=== PATIENT | female | born 1955 | race Caucasian/White ===

== ENCOUNTER 2017-12-31 17:37 | Inpatient (IN) ==
[2017-12-31] MEDS ORDERED: Ondansetron ODT 4 MG TAB.RAPDIS SL ONE (18:07)
[2017-12-31] MEDS ORDERED: 0.9 % Sodium Chloride 500 ML IVC ONE (18:08)
--- NOTE | 2017-12-31 18:14 | Emergency Department Note ---
Disposition Clinical Impression: Diverticulitis Abdominal pain Qualifiers: Abdominal location: right lower quadrant Qualified Code(s): R10.31 - Right lower quadrant pain Disposition: Admitted As Inpatient Condition: Fair Referrals: Timmy Villarreal MD [Primary Care Provider] - Forms: ED Satisfaction Letter, Work/School Release Abdominal Pain HPI - General Chief Complaint: ED Abdominal Pain Stated Complaint: Fever / Abd Pain Time Seen by Provider: 12/31/17 17:52 Source: patient Nursing Notes Reviewed: Yes Vital Signs Reviewed: Yes - History of Present Illness HPI Narrative: 62-year-old female presents emergency department with 3 day history of worsening right lower quadrant abdominal pain. Some nausea without vomiting. No diarrhea. She occasionally has bloody stools from internal hemorrhoids which she says is bright red intermittent and not uncommon for her. She said this is not a new finding. Patient does have her appendix and she is concerned that she may have appendicitis she also has diverticulosis and Concerta may have moved to diverticulitis would like to be evaluated for both of those. She denies chest pain or shortness of breath. Patient does note that she had a fever which she checked several times and it was elevated. She is not taking anything for her fever. No other complaints at this time. 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: constant Location: RLQ Pain Severity: severe Pain Scale: 8 Quality: sharp, dull Radiation: none Migration to: no migration Improves with: nothing Worsens with: nothing Associated symptoms: Reports: nausea, fever Treatments prior to arrival: none - Related Data Home Medications Medication Instructions Recorded Confirmed Clopidogrel [Plavix] 75 mg PO DAILY 11/04/15 12/31/17 Metformin HCl [Glucophage] 1,000 mg PO BID 11/04/15 12/31/17 Allopurinol [Zyloprim 100 MG] 100 mg PO DAILY 07/23/17 12/31/17 LORazepam [Ativan] 0.5 mg PO DAILY PRN 07/23/17 12/31/17 Meclizine HCl [Verticalm] 25 mg PO DAILY PRN 07/23/17 12/31/17 Metoprolol Succinate [Metoprolol 100 mg PO DAILY 07/23/17 12/31/17 Succinate] Rosuvastatin Calcium [Rosuvastatin 5 mg PO Q48H 07/23/17 12/31/17 Calcium] Albuterol Sulfate [Ventolin Hfa] 18 gm IH Q4H PRN 12/31/17 12/31/17 Beclomethasone Dipropionate [Qvar 10.6 gm IH DAILY 12/31/17 12/31/17 Redihaler] Fluticasone Propionate Nasal 25 gm IN DAILY 12/31/17 12/31/17 [Flonase] Furosemide [Lasix] 20 mg PO Q48H 12/31/17 12/31/17 Allergies Allergy/AdvReac Type Severity Reaction Status Date / Time aspirin Allergy Hives Verified 07/23/17 13:03 iodine Allergy Hives Verified 07/23/17 13:03 Oxycodone AdvReac Headache Verified 07/23/17 13:03 Smxmssz-Iua-Ssl Reductase AdvReac Muscle Pain Verified 07/23/17 13:03 Inhibitor [Statins] All systems ED: reviewed and negative except as stated. Review of Systems: As Per HPI Constitutional: Reports: as per HPI Eyes: Reports: as per HPI ENT ED: Reports: as per HPI Cardiovascular: Reports: as per HPI Gastrointestinal: Reports: abdominal pain, nausea Genitourinary: Reports: as per HPI Musculoskeletal: Reports: as per HPI Abdominal Pain PMH - Past Medical History Medical history: Reports: asthma, diabetes, hyperlipidemia, hypertension, kidney stones, myocardial infarction Female Surgical History: Reports: orthopedic, other, other DECISION SCIENCE ANALYST history: Reports: no DECISION SCIENCE ANALYST history Psychiatric history: Reports: no psych history - Social History Smoking status: Current every day smoker Alcohol use: Reports: rarely Drug use: Reports: none Physical Exam - General Limitations: no limitations General appearance: alert, in no apparent distress - Head Head exam: atraumatic, normocephalic - Eye Eye exam: Present: normal appearance - ENT ENT exam: normal exam - Neck Neck exam: Present: normal inspection - Chest Chest inspection: Present: normal inspection, symmetric chest wall rise - Respiratory Respiratory exam: Present: normal lung sounds bilaterally - Cardiovascular Cardiovascular exam: Present: regular rate, normal rhythm - Abdominal Exam Abdominal exam: Present: soft, tenderness Abdominal tenderness: Present: RLQ (Patient has guarding in the right lower quadrant no rigidity) - Extremities Exam Extremities exam: Present: normal inspection - Neurological Exam Neurological exam: Present: alert, oriented X3 - Psychiatric Psychiatric exam: Present: normal affect, normal mood - Skin Skin exam: Present: warm, dry, intact Course Vital Signs Temperature 98.6 F 12/31/17 17:41 Pulse Rate 124 12/31/17 17:41 Respiratory Rate 20 12/31/17 17:41 Blood Pressure 152/88 12/31/17 17:41 O2 Sat by Pulse Oximetry 96 12/31/17 17:41 Temperature 98.6 F 12/31/17 18:00 Pulse Rate 82 12/31/17 20:20 Respiratory Rate 18 12/31/17 20:20 Blood Pressure 112/81 12/31/17 20:20 O2 Sat by Pulse Oximetry 92 12/31/17 20:20 Oxygen Delivery Oxygen Delivery Room Air Abdominal Pain - MDM Narrative Medical decision making narrative: We will do workup to try and rule out appendicitis or diverticulitis including a CT scan. This will be an uncontrasted as the patient is allergic to IV contrast. We will also get labs treat with a small amount of fluids and some nausea medicine and reevaluate accordingly. Patient continued with abdominal pain despite several treatments with analgesics. Additionally CT scan showed diverticulitis in the area of the appendix but no appendicitis. There also was no obvious abscess development. However in the combination of the findings on the CT scan as well as the somewhat intractable abdominal pain and wanted to admit the patient. We started her on IV Flagyl and Cipro. I contacted the hospitalist service agreed to accept the patient for admission for IV antibiotics and serial abdominal exams. - Lab Data Lab results reviewed: Yes I reviewed the patient's lab results. Result diagrams: 12/31/17 18:29 12/31/17 18:29 Lab Results 12/31/17 12/31/17 12/31/17 Range/Units 18:29 18:29 18:29 WBC 14.2 H (4.3-11.1) K/mcL RBC 4.46 (3.82-4.97) M/mcL Hgb 14.6 (11.5-15.4) g/dL Hct 41.8 (35.3-44.9) % MCV 93.7 (83.0-100.0) fL MCH 32.7 (28.0-33.3) pg MCHC 34.9 (31.6-35.5) g/dL RDW 13.8 (11.5-14.5) % Plt Count 234 (140-400) K/mcL MPV 12.0 (9.4-12.4) fL Immature Gran % 0.4 (0-4) % Seg Neutrophils % 72.7 % Lymphocytes % 17.7 % Monocytes % 7.5 % Eosinophils % 1.4 % Basophils % 0.3 % Neutrophils # 10.3 H (1.6-8.9) K/mcL Lymphocytes # 2.5 (0.6-4.6) K/mcL Monocytes # 1.1 (0.0-1.3) K/mcL Eosinophils # 0.2 (0.0-0.6) K/mcL Basophils # 0.0 (0.0-0.2) K/mcL PT 10.7 (9.4-12.1) Seconds INR 1.0 APTT 32.6 (26.0-36.0) Seconds Sodium 137 (136-145) mEq/L Potassium 3.6 (3.5-5.1) mEq/L Chloride 104 (98-107) mEq/L Carbon Dioxide 24 (23-29) mEq/L BUN 19 (8-23) mg/dL Creatinine 1.05 (0.60-1.20) mg/dL Est GFR ( Amer) > 60 (> 60) Est GFR (Non-Af Amer) 53 L (> 60) BUN/Creatinine Ratio 18 (6-26) Glucose 134 H (70-105) mg/dL Calculated Osmolality 288 (280-300) Calcium 9.5 (8.6-10.3) mg/dL Total Bilirubin 0.7 (0.3-1.0) mg/dL Direct Bilirubin 0.1 (0.0-0.2) mg/dL Indirect Bilirubin 0.6 (0.0-1.2) mg/dL AST 11 L (13-39) Units/L ALT 10 (7-52) Units/L Alkaline Phosphatase 92 (34-104) Units/L Serum Total Protein 7.4 (6.4-8.9) g/dL Albumin 4.1 (3.5-5.7) g/dL Globulin 3.3 (2.4-3.5) g/dL Albumin/Globulin Ratio 1.2 (1.1-2.2) Amylase 34 (29-103) Units/L Lipase 17 (11-82) Units/L Urine Color (Yellow) Urine Clarity (Clear) Urine pH (5.0-8.0) pH Units Ur Specific [place] (1.010-1.025) Urine Protein (Neg-Trace) mg/dL Urine Glucose (UA) (Normal) mg/dL Urine Ketones (Negative) mg/dL Urine Blood (Negative) Urine Nitrite (Negative) Urine Bilirubin (Negative) Urine Urobilinogen (Normal) mg/dL Ur Leukocyte Esterase (Negative) Urine Microscopic RBC (0-3) per hpf Urine Microscopic WBC (0-3) per hpf Ur Squamous Epith Cells (None-Few) per lpf Urine Bacteria (None-Few) per hpf Hyaline Casts (None-Few) per lpf Urine Mucus (Few) Ur Culture Indicated? (NO) 12/31/17 Range/Units 19:00 WBC (4.3-11.1) K/mcL RBC (3.82-4.97) M/mcL Hgb (11.5-15.4) g/dL Hct (35.3-44.9) % MCV (83.0-100.0) fL MCH (28.0-33.3) pg MCHC (31.6-35.5) g/dL RDW (11.5-14.5) % Plt Count (140-400) K/mcL MPV (9.4-12.4) fL Immature Gran % (0-4) % Seg Neutrophils % % Lymphocytes % % Monocytes % % Eosinophils % % Basophils % % Neutrophils # (1.6-8.9) K/mcL Lymphocytes # (0.6-4.6) K/mcL Monocytes # (0.0-1.3) K/mcL Eosinophils # (0.0-0.6) K/mcL Basophils # (0.0-0.2) K/mcL PT (9.4-12.1) Seconds INR APTT (26.0-36.0) Seconds Sodium (136-145) mEq/L Potassium (3.5-5.1) mEq/L Chloride (98-107) mEq/L Carbon Dioxide (23-29) mEq/L BUN (8-23) mg/dL Creatinine (0.60-1.20) mg/dL Est GFR ( Amer) (> 60) Est GFR (Non-Af Amer) (> 60) BUN/Creatinine Ratio (6-26) Glucose (70-105) mg/dL Calculated Osmolality (280-300) Calcium (8.6-10.3) mg/dL Total Bilirubin (0.3-1.0) mg/dL Direct Bilirubin (0.0-0.2) mg/dL Indirect Bilirubin (0.0-1.2) mg/dL AST (13-39) Units/L ALT (7-52) Units/L Alkaline Phosphatase (34-104) Units/L Serum Total Protein (6.4-8.9) g/dL Albumin (3.5-5.7) g/dL Globulin (2.4-3.5) g/dL Albumin/Globulin Ratio (1.1-2.2) Amylase (29-103) Units/L Lipase (11-82) Units/L Urine Color Yellow (Yellow) Urine Clarity Slightly Hazy (Clear) Urine pH 5.5 (5.0-8.0) pH Units Ur Specific [place] 1.025 (1.010-1.025) Urine Protein Negative (Neg-Trace) mg/dL Urine Glucose (UA) Normal (Normal) mg/dL Urine Ketones Negative (Negative) mg/dL Urine Blood Small H (Negative) Urine Nitrite Negative (Negative) Urine Bilirubin Negative (Negative) Urine Urobilinogen Normal (Normal) mg/dL Ur Leukocyte Esterase Trace H (Negative) Urine Microscopic RBC 0-3 (0-3) per hpf Urine Microscopic WBC 5-15 H (0-3) per hpf Ur Squamous Epith Cells Many H (None-Few) per lpf Urine Bacteria Few (None-Few) per hpf Hyaline Casts Few (None-Few) per lpf Urine Mucus Many H (Few) Ur Culture Indicated? NO. A (NO) - Radiology Data Radiology results reviewed: Yes I reviewed the patient's radiology results. CT scan reveals diverticulitis in the right lower quadrant. - EKG Data EKG attestation: Yes I reviewed and interpreted this EKG. EKG shows normal: sinus rhythm Rate: normal When compared to previous EKG there are: no significant changes Interpretation: no acute changes
[2017-12-31 18:40] LABS: Basophils % 0.3 %; Eosinophils # 0.2 K/mcL (0.0-0.6); Eosinophils % 1.4 %; Hematocrit 41.8 % (35.3-44.9); Hemoglobin 14.6 g/dL (11.5-15.4); Immature Granulocytes % 0.4 % (0-4); Lymphocytes # 2.5 K/mcL (0.6-4.6); Lymphocytes % 17.7 %; Mean Corpuscular HGB Conc 34.9 g/dL (31.6-35.5); Mean Corpuscular Hemoglobin 32.7 pg (28.0-33.3); Mean Corpuscular Volume 93.7 fL (83.0-100.0); Monocytes # 1.1 K/mcL (0.0-1.3); Monocytes % 7.5 %; Neutrophils # 10.3 K/mcL (1.6-8.9); Platelet Count 234 K/mcL (140-400); Red Blood Count 4.46 M/mcL (3.82-4.97); Red Cell Distribution Width 13.8 % (11.5-14.5); Segmented Neutrophils % 72.7 %
[2017-12-31 18:48] LABS: Activated Partial Thrombo Time 32.6 Seconds (26.0-36.0)
[2017-12-31 18:49] LABS: Prothrombin Time 10.7 Seconds (9.4-12.1)
[2017-12-31 19:05] LABS: Alanine Aminotransferase 10 Units/L (7-52); Albumin 4.1 g/dL (3.5-5.7); Albumin/Globulin Ratio 1.2 (1.1-2.2); Alkaline Phosphatase 92 Units/L (34-104); Amylase 34 Units/L (29-103); Aspartate Amino Transferase 11 Units/L (13-39); BUN/Creatinine Ratio 18 (6-26); Bilirubin,Direct 0.1 mg/dL (0.0-0.2); Bilirubin,Indirect 0.6 mg/dL (0.0-1.2); Bilirubin,Total 0.7 mg/dL (0.3-1.0); Blood Urea Nitrogen 19 mg/dL (8-23); Calcium 9.5 mg/dL (8.6-10.3); Carbon Dioxide 24 mEq/L (23-29); Chloride 104 mEq/L (98-107); Globulin 3.3 g/dL (2.4-3.5); Glucose 134 mg/dL (70-105); Lipase 17 Units/L (11-82); Osmolality,Calculated 288 (280-300); Potassium 3.6 mEq/L (3.5-5.1); Sodium 137 mEq/L (136-145); Total Protein 7.4 g/dL (6.4-8.9); eGFR For African Americans > 60 (> 60); eGFR For Non-African Americans 53 (> 60)
[2017-12-31] MEDS ORDERED: *HR* FentaNYL (PF) 100 MCG/2 ML VIAL IVP ONE (19:06)
[2017-12-31 19:08] LABS: Bilirubin,Urine Negative (Negative); Blood,Urine Small (Negative); Color,Urine Yellow (Yellow); Glucose,Urine (UA) Normal (Normal); Ketones,Urine Negative (Negative); Leukocyte Esterase,Urine Trace (Negative); Nitrite,Urine Negative (Negative); PH,Urine 5.5 pH Units (5.0-8.0); Protein,Urine Negative (Neg-Trace); Specific Gravity,Urine 1.025 (1.010-1.025); Urobilinogen,Urine Normal (Normal)
[2017-12-31 19:10] LABS: Bacteria,Urine Few per hpf (None-Few); Squamous Epithelial Cell,Urine Many per lpf (None-Few)
[2017-12-31 19:15] LABS: Clarity,Urine Slightly Hazy (Clear)
[2017-12-31 19:21] LABS: Hyaline Casts,Urine Few per lpf (None-Few); Mucus,Urine Many (Few); RBC,Urine 0-3 per hpf (0-3)
[2017-12-31] MEDS ORDERED: Cefepime HCl 2,000 MG in Water for inj. (sterile) 20 ML 20 ML IVP STA (19:41)
[2017-12-31] MEDS ORDERED: MetroNIDAZOLE 500 MG/100 ML 500 MG/100 ML BAG IVPB ONE (19:45)
[2017-12-31] MEDS ORDERED: Naloxone 0.4 MG/ML INJ IVP PRN (20:41)
[2017-12-31] MEDS ORDERED: D5% in Water 1,000 ML IVC PRN (20:42)
[2017-12-31] MEDS ORDERED: Dextrose Gel 15 GM/37.5 ML TUBE PO PRN ×2 (20:42)
[2017-12-31] MEDS ORDERED: *HR* Dextrose 50 % in Water (Syg) 50 ML SYRINGE IVP PRN (20:42)
[2017-12-31] MEDS ORDERED: *HR* LORazepam 0.5 MG TABLET PO PRN (20:42)
[2017-12-31] MEDS ORDERED: 0.9 % Sodium Chloride 1,000 ML IVC SCH (20:45)
[2017-12-31] MEDS ORDERED: Furosemide 20 MG TABLET PO SCH (20:45)
--- NOTE | 2017-12-31 20:46 | Internal Med History&Physical ---
Date of Encounter: 12/31/17 Time of Encounter: 20:44 Internal Medicine - H&P: HPI Chief complaint: Abdominal pain Admitted From: Emergency Dept Plans for Post Hospital Care: Home History of present illness: Ms. Polanco is a 62 year old female with history of coronary disease, diabetes, hypertension who presents to the ED with about 3 days of worsening lower abdominal pain mainly in the right lower quadrant. She also associates that with nausea but no vomiting. Denies any fever or chills. She presented to the ED and was somewhat tachycardic and laboratory workup showed leukocytosis. A CT abdomen and pelvis was done which showed pancolonic diverticulosis with findings of acute diverticulitis. There was a 2.7 x 3.1 centimeter simple appearing right ovarian cyst that recommended nonemergent follow-up. The patient was given IV fluids, antiemetics, pain controlling agents, IV Cipro and Flagyl in the ED. Denies any headache, blurry vision, fever, chills, chest pain , shortness breath, diarrhea, constipation, urinary symptoms, or neurological symptoms. Past Med Surg Social Fam HX - Past Medical History Medical history: asthma, diabetes, hyperlipidemia, hypertension, kidney stones, myocardial infarction Psychiatric history: no psych history - Past Surgical History Surgical History: , cholecystectomy, orthopedic, other - Social History Smoking Status: Current every day smoker Smokeless Tobacco Status: No Alcohol use: rarely Drug use: none Internal Medicine - H&P: Meds Clopidogrel [Plavix] 75 mg PO DAILY 11/04/15 [History] Metformin HCl [Glucophage] 1,000 mg PO BID 11/04/15 [History] Allopurinol [Zyloprim 100 MG] 100 mg PO DAILY 07/23/17 [History] LORazepam [Ativan] 0.5 mg PO DAILY PRN 07/23/17 [History] Meclizine HCl [Verticalm] 25 mg PO DAILY PRN 07/23/17 [History] Metoprolol Succinate [Metoprolol Succinate] 100 mg PO DAILY 07/23/17 [History] Rosuvastatin Calcium [Rosuvastatin Calcium] 5 mg PO Q48H 07/23/17 [History] Albuterol Sulfate [Ventolin Hfa] 18 gm IH Q4H PRN 12/31/17 [History] Beclomethasone Dipropionate [Qvar Redihaler] 10.6 gm IH DAILY 12/31/17 [History] Fluticasone Propionate Nasal [Flonase] 25 gm IN DAILY 12/31/17 [History] Furosemide [Lasix] 20 mg PO Q48H 12/31/17 [History] 3 Allergy/AdvReac Type Severity Reaction Status Date / Time aspirin Allergy Hives Verified 07/23/17 13:03 iodine Allergy Hives Verified 07/23/17 13:03 Oxycodone AdvReac Headache Verified 07/23/17 13:03 [place]he[place]-Orw-Ryc Reductase AdvReac Muscle Pain Verified 07/23/17 13:03 Inhibitor [Statins] All Systems PM: A 10-system review of systems was performed and is negative for pertinent findings except as documented above in the HPI. Review of systems: All systems reviewed are negative except for as mentioned above - Constitutional Vitals: Temp Pulse Resp BP Pulse Ox 98.6 F 82 18 112/81 92 12/31/17 18:00 12/31/17 20:20 12/31/17 20:20 12/31/17 20:20 12/31/17 20:20 Exam: GEN: NAD HEENT: AT, NC, No cyanosis, oral mucosa is moist, No JVD Lymphatics: No lymphadenoapthy Eyes: Extrocular muscles intact, anicteric CVS:RRR. S1, S2, No m/r/g RESP: CTAB ABD: Soft, lower abdominal tenderness but no rebound, ND, +BS EXT: No edema, No rashes, 2+ DP NEURO: Nonfocal, CN II-XII intact, No focal motor or sensory deficits Psych: Cooperative, Not anxious or depressed Internal Med - H&P Results - Labs CBC & Chem 7: 12/31/17 18:29 12/31/17 18:29 Labs: Short CBC 12/31/17 Range/Units 18:29 WBC 14.2 H (4.3-11.1) K/mcL Hgb 14.6 (11.5-15.4) g/dL Hct 41.8 (35.3-44.9) % Plt Count 234 (140-400) K/mcL Neutrophils # 10.3 H (1.6-8.9) K/mcL BMP 12/31/17 18:29 Sodium 137 Potassium 3.6 Chloride 104 Carbon Dioxide 24 BUN 19 Creatinine 1.05 Glucose 134 H Calcium 9.5 Liver Function 12/31/17 Range/Units 18:29 Total Bilirubin 0.7 (0.3-1.0) mg/dL Direct Bilirubin 0.1 (0.0-0.2) mg/dL AST 11 L (13-39) Units/L ALT 10 (7-52) Units/L Alkaline Phosphatase 92 (34-104) Units/L Albumin 4.1 (3.5-5.7) g/dL Urine 12/31/17 Range/Units 19:00 Urine Color Yellow (Yellow) Urine Clarity Slightly Hazy (Clear) Urine pH 5.5 (5.0-8.0) pH Units Ur Specific [place] 1.025 (1.010-1.025) Urine Protein Negative (Neg-Trace) mg/dL Urine Glucose (UA) Normal (Normal) mg/dL - Impressions ITS Impressions Abdomen/Pelvis CT 12/31/17 18:07 IMPRESSION: Bhatt colonic diverticulosis. Prominent inflammatory change surrounding a diverticulum at the cecum with wall thickening of the cecum. Appendix is normal. Findings likely related to acute diverticulitis. No fluid collection or free air. 2.7 x 3.1 cm simple appearing right ovarian cyst. Given patient's age and size of the cyst, recommend non-emergent ultrasound. D/ / Charmaine Valderrama MD / Charmaine Valderrama MD Interpreting Provider: Charmaine Valderrama MD - Assessment and plan (1) Acute diverticulitis Current Visit: Yes Status: Acute Assessment and plan: We will admit the patient and place him on IV Cipro and Flagyl. Nothing by mouth. IV fluids. Antiemetics. Pain control. Serial abdominal exams. (2) CAD (coronary artery disease) Current Visit: Yes Status: Acute Assessment and plan: We will resume the patient's cardiac meds. Qualifiers: Coronary Disease-Associated Artery/Lesion type: [place] artery [place] vs. transplanted heart: [place] heart Associated angina: without angina Qualified Code(s): I25.10 - Atherosclerotic heart disease of [place] coronary artery without angina pectoris (3) Diabetes Current Visit: Yes Status: Acute Assessment and plan: Insulin sliding scale. Accu-Cheks. Qualifiers: Diabetes mellitus type: type 2 Diabetes mellitus penitentiary insulin use: without penitentiary use Diabetes mellitus complication status: without complication Qualified Code(s): E11.9 - Type 2 diabetes mellitus without complications (4) Hypertension Current Visit: Yes Status: Acute Assessment and plan: Resume home antihypertensives. Qualifiers: Hypertension type: essential hypertension Qualified Code(s): I10 - Essential (primary) hypertension (5) DVT prophylaxis Current Visit: Yes Status: Acute Assessment and plan: Heparin subcutaneous - Time Spent With Patient Total time spent is greater than 50% in coordination of care (as documented) at patient's floor/unit and/or counseling patient:
[2017-12-31] MEDS: OXYCODONE Oral CONC 10 MG/0.5 ML ORAL.SYG SL PRN (22:30)
[2017-12-31] MEDS: *HR* Heparin 5,000 UNIT/ML VIAL SQ SCH (22:31)
[2018-01-01] MEDS: Insulin LISPRO 300 UNITS/3 ML VIAL SQ SCH ×4 (01:50→18:40)
[2018-01-01] MEDS: MetroNIDAZOLE 500 MG/100 ML 500 MG/100 ML BAG IVPB SCH ×3 (01:56→17:28)
[2018-01-01] MEDS: *HR* Heparin 5,000 UNIT/ML VIAL SQ SCH ×3 (05:52→22:08)
[2018-01-01 06:28] LABS: Basophils % 0.3 %; Eosinophils # 0.4 K/mcL (0.0-0.6); Hematocrit 39.6 % (35.3-44.9); Hemoglobin 13.1 g/dL (11.5-15.4); Immature Granulocytes % 0.5 % (0-4); Lymphocytes # 2.2 K/mcL (0.6-4.6); Lymphocytes % 18.2 %; Mean Corpuscular HGB Conc 33.1 g/dL (31.6-35.5); Mean Corpuscular Hemoglobin 32.1 pg (28.0-33.3); Mean Corpuscular Volume 97.1 fL (83.0-100.0); Mean Platelet Volume 12.5 fL (9.4-12.4); Monocytes # 1.2 K/mcL (0.0-1.3); Monocytes % 10.2 %; Platelet Count 199 K/mcL (140-400); Red Blood Count 4.08 M/mcL (3.82-4.97); Red Cell Distribution Width 14.1 % (11.5-14.5); Segmented Neutrophils % 67.8 %
[2018-01-01 07:02] LABS: BUN/Creatinine Ratio 21 (6-26); Blood Urea Nitrogen 21 mg/dL (8-23); Calcium 8.9 mg/dL (8.6-10.3); Carbon Dioxide 26 mEq/L (23-29); Chloride 106 mEq/L (98-107); Glucose 136 mg/dL (70-105); Magnesium 1.8 mg/dL (1.6-2.6); Osmolality,Calculated 291 (280-300); Potassium 4.3 mEq/L (3.5-5.1); Sodium 138 mEq/L (136-145); eGFR For African Americans > 60 (> 60); eGFR For Non-African Americans 56 (> 60)
[2018-01-01] MEDS: Metoprolol XL (24 HR) Succ 50 MG TAB.ER.24H PO SCH (08:36)
[2018-01-01] MEDS: OXYCODONE Oral CONC 10 MG/0.5 ML ORAL.SYG SL PRN (10:42)
--- NOTE | 2018-01-01 16:00 | Internal Med Progress Note ---
Date of Encounter: 01/01/18 Time of Encounter: 14:00 - Assessment and plan (1) Acute diverticulitis Current Visit: Yes Status: Acute Assessment and plan: We will admit the patient and place him on IV Cipro and Flagyl. Nothing by mouth. IV fluids. Antiemetics. Pain control. Serial abdominal exams. 01/01: #2 IV Flagyl and Cipro. HEENT is improving. White blood cell count is improved from 14.2-11.8. Patient has tolerated some clears. No fevers since admission. We will continue current course, hopefully de-escalate to oral antibiotics tomorrow. She will need a total of 10-14 days of antibiotics for cecal diverticulitis. (2) CAD (coronary artery disease) Current Visit: Yes Status: Acute Assessment and plan: We will resume the patient's cardiac meds. Qualifiers: Coronary Disease-Associated Artery/Lesion type: [place] artery [place] vs. transplanted heart: [place] heart Associated angina: without angina Qualified Code(s): I25.10 - Atherosclerotic heart disease of [place] coronary artery without angina pectoris (3) Diabetes Current Visit: Yes Status: Acute Assessment and plan: Insulin sliding scale. Accu-Cheks. 01/01: Excellent glycemic control in hospital Qualifiers: Diabetes mellitus type: type 2 Diabetes mellitus meterman insulin use: without meterman use Diabetes mellitus complication status: without complication Qualified Code(s): E11.9 - Type 2 diabetes mellitus without complications (4) DVT prophylaxis Current Visit: Yes Status: Acute Assessment and plan: Heparin subcutaneous (5) Hypertension Current Visit: Yes Status: Acute Assessment and plan: Resume home antihypertensives. Qualifiers: Hypertension type: essential hypertension Qualified Code(s): I10 - Essential (primary) hypertension - Time Spent With Patient Total time spent is greater than 50% in coordination of care (as documented) at patient's floor/unit and/or counseling patient: 25 - 35 minutes - Subjective Interval history: Ms. Polanco is a 62 year old female with history of coronary disease, diabetes, hypertension who presents to the ED with about 3 days of worsening lower abdominal pain mainly in the right lower quadrant. She also associates that with nausea but no vomiting. Denies any fever or chills. She presented to the ED and was somewhat tachycardic and laboratory workup showed leukocytosis. A CT abdomen and pelvis was done which showed pancolonic diverticulosis with findings of acute diverticulitis. There was a 2.7 x 3.1 centimeter simple appearing right ovarian cyst that recommended nonemergent follow-up. The patient was given IV fluids, antiemetics, pain controlling agents, IV Cipro and Flagyl in the ED. Denies any headache, blurry vision, fever, chills, chest pain , shortness breath, diarrhea, constipation, urinary symptoms, or neurological symptoms. CT scan abdomen and pelvis (without IV contrast) showed diverticulosis throughout her colon, as well as cecal diverticulitis. Incidental notation of a 2.7 x 3.1 cm right ovarian cyst. Simple in appearance. Recommend ultrasound follow-up as outpatient. 01/01: She continues to have right lower quadrant abdominal pain but it is improved slightly. She has had some nausea. She has had some clears today and tolerated. No fevers or chills. No chest pain or shortness of breath. Overall states she feels better. Her blood cell count improved from 14.2-11.8. - Constitutional Vitals: Temp Pulse Resp BP Pulse Ox 98.3 F 71 12 103/62 93 01/01/18 14:52 01/01/18 14:52 01/01/18 14:52 01/01/18 14:52 01/01/18 14:52 General appearance: Present: mild distress, A&O X 3 Exam: Mild abdominal discomfort - Head Head exam: Present: atraumatic, normocephalic - Eye Eye exam: Present: PERRL, conjuntiva pink, sclera anicteric Pupils: Present: PERRL - Respiratory Respiratory exam: Present: CTAB. Absent: accessory muscle use, rales, rhonchi, wheezes - Cardiovascular Cardiovascular exam: Present: RRR, +S1, +S2. Absent: diastolic murmur, gallop, rubs, systolic murmur - GI/Abdominal GI/Abdominal exam: Present: tenderness Additional comments: Right lower abdomen. No rebound or guarding - Extremities Exam Extremities exam: Present: warm, radial pulses palpable and symmetrical. Absent : calf tenderness, cyanotic, pedal edema - Neurological Exam Neurological exam: Present: CN II-XII intact, oriented X3, no focal deficits. Absent: pronater drift, facial droop, speech deficit - Skin Skin exam: Present: dry, intact Internal Medicine: Result - Labs CBC & Chem 7: 01/01/18 05:34 01/01/18 05:34 Labs: Short CBC 01/01/18 Range/Units 05:34 WBC 11.8 H (4.3-11.1) K/mcL Hgb 13.1 D (11.5-15.4) g/dL Hct 39.6 (35.3-44.9) % Plt Count 199 (140-400) K/mcL Neutrophils # 8.0 (1.6-8.9) K/mcL BMP 01/01/18 05:34 Sodium 138 Potassium 4.3 Chloride 106 Carbon Dioxide 26 BUN 21 Creatinine 1.00 Glucose 136 H Calcium 8.9 - ABG Interpretation ABG results: PT/INR, D-dimer PT 10.7 Seconds (9.4-12.1) 12/31/17 18:29 Consult Discharge Plan - Plan Referrals: Timmy Villarreal MD [Primary Care Provider] -
[2018-01-01] MEDS: Ondansetron 4 MG/2 ML VIAL IVP PRN (18:41)
[2018-01-01] MEDS: Beclomethasone 80mcg MDI IH SCH (20:07)
[2018-01-01] MEDS ORDERED: Piperacillin/Tazobactam 3.375 GM in 0.9 % Sodium Chloride Mini Bag 100 ML IVPB ONE (22:32)
[2018-01-02] MEDS: MetroNIDAZOLE 500 MG/100 ML 500 MG/100 ML BAG IVPB SCH ×2 (00:37→08:08)
[2018-01-02] MEDS: Insulin LISPRO 300 UNITS/3 ML VIAL SQ SCH ×5 (01:11→20:47)
[2018-01-02] MEDS: *HR* Heparin 5,000 UNIT/ML VIAL SQ SCH ×3 (05:21→20:44)
[2018-01-02] MEDS: Beclomethasone 80mcg MDI IH SCH ×2 (07:38→20:16)
[2018-01-02] MEDS ORDERED: Piperacillin/Tazobactam 3.375 GM in 0.9 % Sodium Chloride Mini Bag 100 ML IVPB SCH ×2 (08:00→12:00)
--- NOTE | 2018-01-02 08:07 | Electrocardiograph Report ---
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
[2018-01-02] MEDS: Metoprolol XL (24 HR) Succ 50 MG TAB.ER.24H PO SCH (08:14)
--- NOTE | 2018-01-02 08:18 | Electrocardiograph Report ---
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
--- NOTE | 2018-01-02 14:49 | Internal Med Progress Note ---
Date of Encounter: 01/02/18 Time of Encounter: 11:00 - Assessment and plan (1) Acute diverticulitis Current Visit: Yes Status: Acute Assessment and plan: We will admit the patient and place him on IV Cipro and Flagyl. Nothing by mouth. IV fluids. Antiemetics. Pain control. Serial abdominal exams. 01/01: #2 IV Flagyl and Cipro. HEENT is improving. White blood cell count is improved from 14.2-11.8. Patient has tolerated some clears. No fevers since admission. We will continue current course, hopefully de-escalate to oral antibiotics tomorrow. She will need a total of 10-14 days of antibiotics for cecal diverticulitis. 01/02: Continues to improve. Patient apparently had a reaction to Cipro with irritation at the IV site and redness. She was changed to Zosyn. She is currently day #3 of antibiotics. If she continues to do well we will change to oral Augmentin at discharge. Cipro was listed as an allergy. (2) CAD (coronary artery disease) Current Visit: Yes Status: Acute Assessment and plan: We will resume the patient's cardiac meds. (3) Diabetes Current Visit: Yes Status: Acute Assessment and plan: Insulin sliding scale. Accu-Cheks. 5/: Excellent glycemic control in hospital Qualifiers: Diabetes mellitus type: type 2 Diabetes mellitus terminal block assembler insulin use: without terminal block assembler use Diabetes mellitus complication status: without complication Qualified Code(s): E11.9 - Type 2 diabetes mellitus without complications (4) DVT prophylaxis Current Visit: Yes Status: Acute (5) Hypertension Current Visit: Yes Status: Acute Assessment and plan: Resume home antihypertensives. Qualifiers: Hypertension type: essential hypertension Qualified Code(s): I10 - Essential (primary) hypertension - Time Spent With Patient Total time spent is greater than 50% in coordination of care (as documented) at patient's floor/unit and/or counseling patient: 25 - 35 minutes - Subjective Interval history: Ms. Polanco is a 62 year old female with history of coronary disease, diabetes, hypertension who presents to the ED with about 3 days of worsening lower abdominal pain mainly in the right lower quadrant. She also associates that with nausea but no vomiting. Denies any fever or chills. She presented to the ED and was somewhat tachycardic and laboratory workup showed leukocytosis. A CT abdomen and pelvis was done which showed pancolonic diverticulosis with findings of acute diverticulitis. There was a 2.7 x 3.1 centimeter simple appearing right ovarian cyst that recommended nonemergent follow-up. The patient was given IV fluids, antiemetics, pain controlling agents, IV Cipro and Flagyl in the ED. Denies any headache, blurry vision, fever, chills, chest pain , shortness breath, diarrhea, constipation, urinary symptoms, or neurological symptoms. CT scan abdomen and pelvis (without IV contrast) showed diverticulosis throughout her colon, as well as cecal diverticulitis. Incidental notation of a 2.7 x 3.1 cm right ovarian cyst. Simple in appearance. Recommend ultrasound follow-up as outpatient. 01/01: She continues to have right lower quadrant abdominal pain but it is improved slightly. She has had some nausea. She has had some clears today and tolerated. No fevers or chills. No chest pain or shortness of breath. Overall states she feels better. Her blood cell count improved from 14.2-11.8. 01/02: Continues to improve. Tolerating clears. Asking to advance diet. No fevers or chills. No bowel movement yet. Did have nausea last night. No vomiting. - Constitutional Vitals: Temp Pulse Resp BP Pulse Ox 98.2 F 65 16 112/73 96 01/02/18 13:07 01/02/18 11:08 01/02/18 11:08 01/02/18 11:08 01/02/18 11:08 General appearance: Present: mild distress, A&O X 3 - Head Head exam: Present: atraumatic, normocephalic - Eye Eye exam: Present: PERRL, conjuntiva pink, sclera anicteric Pupils: Present: PERRL - Neck Neck exam general surgery: Present: supple, trachea midline. Absent: lymphadenopathy - Respiratory Respiratory exam: Present: CTAB. Absent: accessory muscle use, rales, rhonchi, wheezes - Cardiovascular Cardiovascular exam: Present: RRR, +S1, +S2. Absent: diastolic murmur, gallop, rubs, systolic murmur - GI/Abdominal GI/Abdominal exam: Present: normal bowel sounds, soft, tenderness (Diffuse mid abdomen, RLQ improved), no peritoneal signs. Absent: distended - Extremities Exam Extremities exam: Present: warm, radial pulses palpable and symmetrical. Absent : calf tenderness, cyanotic, pedal edema - Neurological Exam Neurological exam: Present: CN II-XII intact, oriented X3, no focal deficits. Absent: pronater drift, facial droop, speech deficit - Skin Skin exam: Present: dry, intact Internal Medicine: Result - Labs CBC & Chem 7: 01/01/18 05:34 01/01/18 05:34 - ABG Interpretation ABG results: PT/INR, D-dimer PT 10.7 Seconds (9.4-12.1) 12/31/17 18:29 - Impressions Impressions KUB X-Ray 01/02/18 09:25 IMPRESSION: No acute process. D/ / Christine Rodriguez MD / Christine Rodriguez MD Interpreting Provider: Christine Rodriguez MD Consult Discharge Plan - Plan Referrals: Timmy Villarreal MD [Primary Care Provider] -
[2018-01-02] MEDS: Ondansetron 4 MG/2 ML VIAL IVP PRN (15:59)
[2018-01-02] MEDS: Piperacillin/Tazobactam 3.375 GM in 0.9 % Sodium Chloride Mini Bag 100 ML IVPB SCH (16:02)
[2018-01-03] MEDS: Piperacillin/Tazobactam 3.375 GM in 0.9 % Sodium Chloride Mini Bag 100 ML IVPB SCH (02:30)
[2018-01-03] MEDS: *HR* Heparin 5,000 UNIT/ML VIAL SQ SCH ×2 (06:41→14:32)
[2018-01-03] MEDS: Beclomethasone 80mcg MDI IH SCH (07:58)
[2018-01-03] MEDS: Metoprolol XL (24 HR) Succ 50 MG TAB.ER.24H PO SCH (08:39)
[2018-01-03] MEDS: Insulin LISPRO 300 UNITS/3 ML VIAL SQ SCH ×2 (08:41→12:28)
[2018-01-03] MEDS ORDERED: Piperacillin/Tazobactam 3.375 GM in 0.9 % Sodium Chloride Mini Bag 100 ML IVPB SCH (10:00)
[2018-01-03 10:17] LABS: Basophils % 0.5 %; Eosinophils # 0.3 K/mcL (0.0-0.6); Eosinophils % 3.4 %; Hematocrit 37.8 % (35.3-44.9); Hemoglobin 13.1 g/dL (11.5-15.4); Immature Granulocytes % 0.3 % (0-4); Lymphocytes # 1.7 K/mcL (0.6-4.6); Mean Corpuscular HGB Conc 34.7 g/dL (31.6-35.5); Mean Corpuscular Hemoglobin 32.5 pg (28.0-33.3); Mean Corpuscular Volume 93.8 fL (83.0-100.0); Mean Platelet Volume 12.4 fL (9.4-12.4); Monocytes # 0.7 K/mcL (0.0-1.3); Monocytes % 7.6 %; Neutrophils # 6.1 K/mcL (1.6-8.9); Platelet Count 212 K/mcL (140-400); Red Blood Count 4.03 M/mcL (3.82-4.97); Red Cell Distribution Width 13.4 % (11.5-14.5); Segmented Neutrophils % 69.2 %
[2018-01-03 11:21] VITALS: BP 134/91
--- NOTE | 2018-01-03 12:26 | Discharge Summary ---
Date of Encounter: 01/03/18 Time of Encounter: 11:00 - Discharge Diagnosis (1) Acute diverticulitis Priority: Primary Status: Acute Assessment and Plan: We will admit the patient and place him on IV Cipro and Flagyl. Nothing by mouth. IV fluids. Antiemetics. Pain control. Serial abdominal exams. 01/01: #2 IV Flagyl and Cipro. HEENT is improving. White blood cell count is improved from 14.2-11.8. Patient has tolerated some clears. No fevers since admission. We will continue current course, hopefully de-escalate to oral antibiotics tomorrow. She will need a total of 10-14 days of antibiotics for cecal diverticulitis. 01/02: Continues to improve. Patient apparently had a reaction to Cipro with irritation at the IV site and redness. She was changed to Zosyn. She is currently day #3 of antibiotics. If she continues to do well we will change to oral Augmentin at discharge. Cipro was listed as an allergy. (2) CAD (coronary artery disease) Priority: Secondary Status: Acute Assessment and Plan: We will resume the patient's cardiac meds. (3) Diabetes Priority: Secondary Status: Acute Assessment and Plan: Insulin sliding scale. Accu-Cheks. 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 Qualifiers: Hypertension type: essential hypertension Qualified Code(s): I10 - Essential (primary) hypertension Hospital course: We will admit the patient and place him on IV Cipro and Flagyl. Nothing by mouth. IV fluids. Antiemetics. Pain control. Serial abdominal exams. 01/01: #2 IV Flagyl and Cipro. HEENT is improving. White blood cell count is improved from 14.2-11.8. Patient has tolerated some clears. No fevers since admission. We will continue current course, hopefully de-escalate to oral antibiotics tomorrow. She will need a total of 10-14 days of antibiotics for cecal diverticulitis. 01/02: Continues to improve. Patient apparently had a reaction to Cipro with irritation at the IV site and redness. She was changed to Zosyn. She is currently day #3 of antibiotics. If she continues to do well we will change to oral Augmentin at discharge. Cipro was listed as an allergy. Hosp course: Patient did well. By day of discharge she was tolerating a full diet, abdominal pain had resolved. No more nausea. She was feeling well and I seem to go home. She was deemed stable for discharge. She was transitioned to oral Augmentin, currently she is day #4 of a planned 14 day course of Augmentin. Follow up with her primary care provider next week. Return should she have any problems, fevers, chills, increased pain or any other difficulties. Discharge discussed with: patient - Time Spent with Patient Total time spent providing and/or coordinating discharge services: Greater than 30 minutes (31 minutes) - Discharge Medications Home Medications: Clopidogrel [Plavix] 75 mg PO DAILY 11/04/15 [History] Metformin HCl [Glucophage] 1,000 mg PO BID 11/04/15 [History] Allopurinol [Zyloprim 100 MG] 100 mg PO DAILY 07/23/17 [History] LORazepam [Ativan] 0.5 mg PO DAILY PRN 07/23/17 [History] Meclizine HCl [Verticalm] 25 mg PO DAILY PRN 07/23/17 [History] Albuterol Sulfate [Ventolin Hfa] 18 gm IH Q4H PRN 12/31/17 [History] Beclomethasone Dipropionate [Qvar Redihaler] 10.6 gm IH DAILY 12/31/17 [History] Fluticasone Propionate Nasal [Flonase] 25 gm IN DAILY 12/31/17 [History] Furosemide [Lasix] 20 mg PO Q48H 12/31/17 [History] Rosuvastatin Calcium [Rosuvastatin Calcium] 5 mg PO Q48H 01/01/18 [History] Metoprolol Succinate [Toprol Xl] 100 mg PO DAILY 01/02/18 [History] Allergies/Adverse Reactions: 3 Allergy/AdvReac Type Severity Reaction Status Date / Time aspirin Allergy Hives Verified 01/01/18 11:58 ciprofloxacin Allergy Rash Verified 01/02/18 10:08 iodine Allergy Hives Verified 01/01/18 11:58 Oxycodone AdvReac Headache Verified 01/01/18 11:58 [id number]-[id number] Reductase AdvReac Muscle Pain Verified 01/01/18 11:58 Inhibitor [Statins] Date of admission: 12/31/17 20:45 Primary care physician: Timmy Villarreal MD Discharging clinician: Winston Alvarenga Anticipated date of discharge: 01/03/18 - Constitutional Vitals: Temp Pulse Resp BP Pulse Ox 97.8 F 65 16 134/91 95 01/03/18 11:19 01/03/18 11:19 01/03/18 11:19 01/03/18 11:19 01/03/18 11:19 General appearance: Present: mild distress, A&O X 3 - Head Head exam: Present: atraumatic, normocephalic - Eye Eye exam: Present: PERRL, conjuntiva pink, sclera anicteric Pupils: Present: PERRL - Neck Neck exam general surgery: Present: supple, trachea midline. Absent: lymphadenopathy - Respiratory Respiratory exam: Present: CTAB. Absent: accessory muscle use, rales, rhonchi, wheezes - Cardiovascular Cardiovascular exam: Present: RRR, +S1, +S2. Absent: diastolic murmur, gallop, rubs, systolic murmur - GI/Abdominal GI/Abdominal exam: Present: normal bowel sounds, soft, no peritoneal signs. Absent: distended, tenderness - Extremities Exam Extremities exam: Present: warm, radial pulses palpable and symmetrical. Absent : calf tenderness, cyanotic, pedal edema - Neurological Exam Neurological exam: Present: CN II-XII intact, oriented X3, no focal deficits. Absent: pronater drift, facial droop, speech deficit - Skin Skin exam: Present: dry, intact - Patient Status Disposition: Home, Self-Care Condition: Fair Functional capacity at discharge: independent ambulation Overall status at discharge: patient is progressing back to baseline - Discharge Instructions Instructions: Diverticulitis (GEN) Additional Instructions: Follow-up with your doctor in one week Follow-up with her primary care provider regarding 2.7 x 3.1 cm right ovarian cysts incidentally noted on CAT scan, will likely need an ultrasound to further evaluate. - Diet and Activity Activity: increase activity as tolerated Diet: advance to your usual diet
== END 2018-01-03 15:20 | disposition home or self-care (01) | DRG 392 ==
LOC: 3ANU 17:37 → EMEROO 17:37 → OBSVTOIN 20:45 → 3ANU 21:09
PROVIDERS: ADMIT Internal Medicine; ATTEND Internal Medicine

== ENCOUNTER 2018-01-29 13:52 | Observation (INO) ==
[2018-01-29] MEDS ORDERED: Famotidine 20 MG/2 ML VIAL IVP ONE (14:13)
[2018-01-29 14:46] LABS: Hemoglobin 14.8 g/dL (11.5-15.4); Mean Corpuscular HGB Conc 33.6 g/dL (31.6-35.5); Mean Corpuscular Hemoglobin 31.7 pg (28.0-33.3); Mean Corpuscular Volume 94.2 fL (83.0-100.0); Mean Platelet Volume 12.5 fL (9.4-12.4); Platelet Count 209 K/mcL (140-400); Red Blood Count 4.67 M/mcL (3.82-4.97); Red Cell Distribution Width 14.4 % (11.5-14.5)
[2018-01-29 14:55] LABS: Troponin I < 0.03 ng/mL (< 0.04)
[2018-01-29 15:01] LABS: Alanine Aminotransferase 10 Units/L (7-52); Albumin 3.9 g/dL (3.5-5.7); Albumin/Globulin Ratio 1.3 (1.1-2.2); Alkaline Phosphatase 82 Units/L (34-104); Aspartate Amino Transferase 13 Units/L (13-39); BUN/Creatinine Ratio 22 (6-26); Bilirubin,Total 0.4 mg/dL (0.3-1.0); Blood Urea Nitrogen 22 mg/dL (8-23); Calcium 9.4 mg/dL (8.6-10.3); Carbon Dioxide 22 mEq/L (23-29); Chloride 111 mEq/L (98-107); Globulin 2.9 g/dL (2.4-3.5); Glucose 146 mg/dL (70-105); Osmolality,Calculated 298 (280-300); Potassium 4.3 mEq/L (3.5-5.1); Sodium 141 mEq/L (136-145); Total Protein 6.8 g/dL (6.4-8.9); eGFR For African Americans > 60 (> 60); eGFR For Non-African Americans 56 (> 60)
--- NOTE | 2018-01-29 16:47 | Emergency Department Note ---
Disposition Clinical Impression: Allergic reaction, Angioedema Disposition: Admitted As Inpatient Condition: Critical Referrals: Timmy Villarreal MD [Primary Care Provider] - General Adult HPI - General Chief complaint: ED Allergic Reaction Stated complaint: allergic reaction Source: patient, EMS Limitations: no limitations - History of Present Illness HPI Narrative: This is a 62-year-old female who arrived by squad. She was stung by a bee on the right upper lip. She developed immediate swelling throughout the right upper lip and the anterior tongue. She received 2 doses of EpiPen dose epinephrine and Solu-Medrol prior to arrival. Had received Benadryl and we gave her some Pepcid after arrival. She is not spitting or drooling. She is having some itching over the rash which has extended down face and neck and upper chest. This occurred just prior to arrival. Pain Scale: 0 - Related Data Home Medications Medication Instructions Recorded Confirmed Clopidogrel [Plavix] 75 mg PO DAILY 11/04/15 12/31/17 Metformin HCl [Glucophage] 1,000 mg PO BID 11/04/15 12/31/17 Allopurinol [Zyloprim 100 MG] 100 mg PO DAILY 07/23/17 12/31/17 LORazepam [Ativan] 0.5 mg PO DAILY PRN 07/23/17 12/31/17 Meclizine HCl [Verticalm] 25 mg PO DAILY PRN 07/23/17 12/31/17 Albuterol Sulfate [Ventolin Hfa] 18 gm IH Q4H PRN 12/31/17 12/31/17 Beclomethasone Dipropionate [Qvar 10.6 gm IH DAILY 12/31/17 12/31/17 Redihaler] Fluticasone Propionate Nasal 25 gm IN DAILY 12/31/17 12/31/17 [Flonase] Furosemide [Lasix] 20 mg PO Q48H 12/31/17 12/31/17 Rosuvastatin Calcium 5 mg PO Q48H 01/01/18 01/01/18 Metoprolol Succinate [Toprol Xl] 100 mg PO DAILY 01/02/18 01/02/18 Previous Rx's Medication Instructions Recorded Amoxicillin/Clavulanate [Augmentin] 875 mg PO BIDWM 11 Days #22 tablet 01/03/18 Allergies Allergy/AdvReac Type Severity Reaction Status Date / Time aspirin Allergy Hives Verified 01/01/18 11:58 ciprofloxacin Allergy Rash Verified 01/02/18 10:08 iodine Allergy Hives Verified 01/01/18 11:58 Oxycodone AdvReac Headache Verified 01/01/18 11:58 [id number] Reductase AdvReac Muscle Pain Verified 01/01/18 11:58 Inhibitor [Statins] All systems ED: reviewed and negative except as stated. Constitutional: Denies: fever Cardiovascular: Denies: chest pain Respiratory: Denies: dyspnea Gastrointestinal: Denies: abdominal pain, vomiting Neurological: Denies: headache Past Medical History - Past Medical History Attestation: Yes The following information was validated with the patient. Medical history: Reports: asthma, diabetes, hyperlipidemia, hypertension, kidney stones, myocardial infarction Surgical history: Reports: , cholecystectomy, orthopedic, other Psychiatric history: Reports: no psych history STEEL ERECTOR history: Reports: no STEEL ERECTOR history - Social History Smoking Status: Current every day smoker Smokeless Tobacco Status: No Alcohol use: Reports: rarely Drug use: Reports: none Physical Exam - General Limitations: no limitations General appearance: alert, anxious, in distress - Eye Eye exam: Present: PERRL - ENT ENT exam: other (The patient does have some residual swelling of the anterior tongue and upper lip area. She is not spitting or drooling and appears to be clearing her secretions.) - Chest Chest inspection: Present: symmetric chest wall rise - Respiratory Respiratory exam: Absent: wheezes - Cardiovascular Cardiovascular exam: Present: regular rate, normal rhythm - Abdominal Exam Abdominal exam: Present: Non-Tender - Skin Skin exam: Present: other (She has an urticarial rash from the lower face down the neck down the anterior chest. It itches.) Course Course Narrative: The patient received epinephrine, steroids, Benadryl and Pepcid. She has been observed in the emergency department for over an hour. Her blood pressure is holding. She feels like the swelling is getting a little bit better. She is still able to clear her secretions. I do think she needs to start in the intensive care unit. I discussed the case with the relish maker to arrange for admission. Vital Signs Temperature 98.2 F 01/29/18 13:56 Pulse Rate 93 01/29/18 13:56 Respiratory Rate 24 01/29/18 13:56 Blood Pressure 158/86 01/29/18 13:56 O2 Sat by Pulse Oximetry 98 01/29/18 13:56 Temperature 98.2 F 01/29/18 13:56 Pulse Rate 95 01/29/18 16:05 Respiratory Rate 22 01/29/18 16:05 Blood Pressure 128/80 01/29/18 16:05 O2 Sat by Pulse Oximetry 98 01/29/18 16:05 Oxygen Delivery Oxygen Delivery Nasal Cannula Medical Decision Making - Medical Records Medical records reviewed: Yes I reviewed the patient's medical records. - Lab Data Lab results reviewed: Yes I reviewed the patient's lab results. Result diagrams: 01/29/18 14:22 01/29/18 14:22 Lab Results 01/29/18 01/29/18 Range/Units 14:22 14:22 WBC 12.0 H (4.3-11.1) K/mcL RBC 4.67 (3.82-4.97) M/mcL Hgb 14.8 (11.5-15.4) g/dL Hct 44.0 (35.3-44.9) % MCV 94.2 (83.0-100.0) fL MCH 31.7 (28.0-33.3) pg MCHC 33.6 (31.6-35.5) g/dL RDW 14.4 (11.5-14.5) % Plt Count 209 (140-400) K/mcL MPV 12.5 H (9.4-12.4) fL Sodium 141 (136-145) mEq/L Potassium 4.3 (3.5-5.1) mEq/L Chloride 111 H (98-107) mEq/L Carbon Dioxide 22 L (23-29) mEq/L BUN 22 (8-23) mg/dL Creatinine 1.00 (0.60-1.20) mg/dL Est GFR ( Amer) > 60 (> 60) Est GFR (Non-Af Amer) 56 L (> 60) BUN/Creatinine Ratio 22 (6-26) Glucose 146 H (70-105) mg/dL Calculated Osmolality 298 (280-300) Calcium 9.4 (8.6-10.3) mg/dL Total Bilirubin 0.4 (0.3-1.0) mg/dL AST 13 (13-39) Units/L ALT 10 (7-52) Units/L Alkaline Phosphatase 82 (34-104) Units/L Troponin I < 0.03 (< 0.04) ng/mL Serum Total Protein 6.8 (6.4-8.9) g/dL Albumin 3.9 (3.5-5.7) g/dL Globulin 2.9 (2.4-3.5) g/dL Albumin/Globulin Ratio 1.3 (1.1-2.2) - EKG Data EKG #1 EKG attestation: Yes I reviewed and interpreted this EKG. EKG results narrative: EKG interpreted by me showing sinus rhythm at a rate of 91, QRS of 84, QTC of 415, axis of 63. No ischemic changes. Critical Care Time Critical Care Time: Yes Total Critical Care Time: 30 Attestation: There was a high probability of clinically significant and/or life-threatening deterioration in the course of this patient's care required my acute intervention. Total critical care time of 30 minutes exclusive of procedures.
[2018-01-29] MEDS ORDERED: Naloxone 0.4 MG/ML INJ IVP PRN (16:53)
--- NOTE | 2018-01-29 16:57 | Pulmonology History & Physical ---
<Tor Roe - Last Filed: 01/29/18 16:55> Date of Encounter: 01/29/18 Time of Encounter: 16:55 Assessment and Plan (1) Anaphylaxis Current visit: Yes Status: Acute 1. From bee sting, currently resolving, received 2 IM doses of epinephrine 2. Patient is without stridor or respiratory distress and is tolerating her secretions 3. We will keep in ICU for close respiratory monitoring overnight. 4. We will give Solu-Medrol, Benadryl and Pepcid x24 hours Qualifiers: Encounter type: initial encounter Qualified Code(s): T78.2XXA - Anaphylactic shock, unspecified, initial encounter (2) Diverticulitis Current visit: No Status: Acute 1. Continue home antibiotics, abdominal exam is benign (3) Diabetes Current visit: No Status: Acute 1. We will monitor, continue home meds Qualifiers: Diabetes mellitus type: type 2 Diabetes mellitus detention insulin use: without detention use Diabetes mellitus complication status: without complication Qualified Code(s): E11.9 - Type 2 diabetes mellitus without complications (4) Hypertension Current visit: No Status: Acute 1. Monitor, continue home meds Qualifiers: Hypertension type: essential hypertension Qualified Code(s): I10 - Essential (primary) hypertension History of Present Illness Chief complaint: Anaphylaxis HPI: Ms. Polanco is a 62 year old female who presented to the emergency department today after being stung on the lip by a bee. 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 She has had several admissions from anaphylactic-type reactions. 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 She administered the EpiPen herself prior to calling 911. She noted pain and swelling to her lips, tongue and face with difficulty breathing and trouble swallowing. She was administered another 0.3 mg IM epinephrine via EMS and was treated with steroids and antihistamines in the emergency department. Patient has a history of diabetes, hypertension and diverticulitis. She states that she is currently on antibiotics for a recent bout of diverticulitis which is getting better but she still does have some epigastric and left lower quadrant crampy abdominal pain. No melena or hematochezia. No current chest pain or shortness of breath. States that the swelling is getting better and she has been able to swallow okay. She did have a rash on her face that is also resolving Past Med Surg Social Fam HX - Past Medical History Medical history: asthma, diabetes, hyperlipidemia, hypertension, kidney stones, myocardial infarction Additional medical history: Gout, diverticulosis Psychiatric history: no psych history - Past Surgical History Surgical History: , cholecystectomy, orthopedic, other Additional surgical history: bilateral knee replacement, R foot sx, R shoulder - Social History Smoking Status: Current every day smoker Smokeless Tobacco Status: No Alcohol use: rarely Drug use: none - Family History Father Living Status: Hx Family Cancer: Yes (Colon) Medications and Allergies Clopidogrel [Plavix] 75 mg PO DAILY 11/04/15 [History] Metformin HCl [Glucophage] 1,000 mg PO BID 11/04/15 [History] Allopurinol [Zyloprim 100 MG] 100 mg PO DAILY 07/23/17 [History] LORazepam [Ativan] 0.5 mg PO DAILY PRN 07/23/17 [History] Meclizine HCl [Verticalm] 25 mg PO DAILY PRN 07/23/17 [History] Albuterol Sulfate [Ventolin Hfa] 18 gm IH Q4H PRN 12/31/17 [History] Beclomethasone Dipropionate [Qvar Redihaler] 10.6 gm IH DAILY 12/31/17 [History] Fluticasone Propionate Nasal [Flonase] 25 gm IN DAILY 12/31/17 [History] Furosemide [Lasix] 20 mg PO Q48H 12/31/17 [History] Rosuvastatin Calcium 5 mg PO Q48H 01/01/18 [History] Metoprolol Succinate [Toprol Xl] 100 mg PO DAILY 01/02/18 [History] 3 Allergy/AdvReac Type Severity Reaction Status Date / Time aspirin Allergy Hives Verified 01/29/18 17:11 ciprofloxacin Allergy Rash Verified 01/29/18 17:11 iodine Allergy Hives Verified 01/29/18 17:11 Oxycodone AdvReac Headache Verified 01/29/18 17:11 Lkgkmuo-Ysz-Wjn Reductase AdvReac Muscle Pain Verified 01/29/18 17:11 Inhibitor [Statins] All Systems: The remainder of the systems were reviewed and are negative Review of Systems: As reviewed in the HPI. All other systems reviewed are negative or normal. Physical Examination Vital Signs: Vital Signs, Last 4 Hours Temp Pulse Resp BP Pulse Ox 01/29/18 16:05 95 22 128/80 98 01/29/18 14:57 93 18 129/73 97 01/29/18 14:14 97 01/29/18 13:56 98.2 F 93 24 158/86 98 General appearance: no acute distress Eyes: nonicteric ENT: oropharynx moist, other (Mild tongue and perioral swelling as well as swelling around the face, greater on the right) Neck: supple Effort: normal Inspection: normal, other (NO Stridor or wheezing) Auscultation: bilateral: clear Cardiovascular: regular rate and rhythm Gastrointestinal: normoactive bowel sounds, non-distended Integumentary: normal Extremities: no cyanosis, no edema, no clubbing Musculoskeletal: no deformities, ROM normal normal mental status, non-focal exam mood appropriate, affect normal Results - Laboratory Findings CBC and BMP: 01/29/18 14:22 01/29/18 14:22 Abnormal lab findings: Abnormal lab results WBC 12.0 K/mcL (4.3-11.1) H 01/29/18 14:22 MPV 12.5 fL (9.4-12.4) H 01/29/18 14:22 Chloride 111 mEq/L (98-107) H 01/29/18 14:22 Carbon Dioxide 22 mEq/L (23-29) L 01/29/18 14:22 Est GFR (Non-Af Amer) 56 (> 60) L 01/29/18 14:22 Glucose 146 mg/dL (70-105) H 01/29/18 14:22 <Sriram Montiel S - Last Filed: 01/29/18 23:38> Date of Encounter: 01/29/18 History of Present Illness HPI: Ms. Polanco is a 62 year old female All Systems: The remainder of the systems were reviewed and are negative Physical Examination Vital Signs: Vital Signs, Last 4 Hours Temp Pulse Resp BP Pulse Ox 01/29/18 21:16 98.1 F 01/29/18 20:00 90 12 137/83 96 Results - Laboratory Findings CBC and BMP: 01/29/18 14:22 01/29/18 14:22 Abnormal lab findings: Abnormal lab results WBC 12.0 K/mcL (4.3-11.1) H 01/29/18 14:22 MPV 12.5 fL (9.4-12.4) H 01/29/18 14:22 Chloride 111 mEq/L (98-107) H 01/29/18 14:22 Carbon Dioxide 22 mEq/L (23-29) L 01/29/18 14:22 Est GFR (Non-Af Amer) 56 (> 60) L 01/29/18 14:22 Glucose 146 mg/dL (70-105) H 01/29/18 14:22 - Attending Attestation I saw and evaluated this patient and my medical decision-making was reviewed with the Resident Physician. I agree with the documented findings, disposition and treatment plan as described except to the extent set forth below. We independently had [id number] contact with the patient Patient seen and examined at bedside Labs, radiology, chart personally reviewed. Management was reviewed during multidisciplinary critical care rounds. SCOREBOARD OPERATOR: Patient is conscious oriented able to talk clearly in full sentences. Pulm: Patient has acceptable oxygenation and ventilation.To wean down FIO2 as tolerated . Patient has tongue swelling after Bee sting initially she had trouble swallowing after 2 epipen device , had steroids in the ED she responded well to steroids , will continue Steroids , Anti -histaminic and H2 soto Cards: Patient is hemodynamically stable FEN-GI: Advance as diet as tolerated Renal: Labs reviewed ID: No active issues Heme/Onc: Patient has anaphylaxis , patient is on thromboprophylaxis Endo: Glucose Monitored Integ/MSK: Skin Care per routine ICU Nursing Protocol to prevent ulcers. Lines: All lines examined without evidence of infection : Dispo: Remain in ICU tonight CODE:Full Code
[2018-01-29] MEDS ORDERED: Famotidine 20 MG/2 ML VIAL IVP SCH (17:15)
[2018-01-29 17:18] LABS: Magnesium 1.7 mg/dL (1.6-2.6)
[2018-01-29] MEDS: methylPREDNISolone 125 MG/2 ML VIAL IVP SCH ×2 (18:08→23:46)
[2018-01-29] MEDS ORDERED: Dextrose Gel 15 GM/37.5 ML TUBE PO PRN ×2 (20:45)
[2018-01-29] MEDS ORDERED: D5% in Water 1,000 ML IVC PRN (20:45)
[2018-01-29] MEDS ORDERED: *HR* Dextrose 50 % in Water (Syg) 50 ML SYRINGE IVP PRN (20:45)
[2018-01-29] MEDS ORDERED: Insulin LISPRO 300 UNITS/3 ML VIAL SQ SCH (21:00)
[2018-01-30] MEDS ORDERED: Melatonin 3 MG TABLET PO PRN ×3 (01:25→09:57)
[2018-01-30] MEDS ORDERED: Famotidine 20 MG/2 ML VIAL IVP SCH (06:00)
[2018-01-30 06:29] LABS: Basophils % 0.1 %; Hematocrit 42.5 % (35.3-44.9); Hemoglobin 14.6 g/dL (11.5-15.4); Immature Granulocytes % 0.9 % (0-4); Lymphocytes % 8.9 %; Mean Corpuscular HGB Conc 34.4 g/dL (31.6-35.5); Mean Corpuscular Hemoglobin 32.4 pg (28.0-33.3); Mean Corpuscular Volume 94.2 fL (83.0-100.0); Mean Platelet Volume 12.9 fL (9.4-12.4); Monocytes # 0.1 K/mcL (0.0-1.3); Monocytes % 0.8 %; Neutrophils # 10.4 K/mcL (1.6-8.9); Platelet Count 199 K/mcL (140-400); Red Blood Count 4.51 M/mcL (3.82-4.97); Red Cell Distribution Width 14.3 % (11.5-14.5); Segmented Neutrophils % 89.3 %
[2018-01-30 06:46] LABS: BUN/Creatinine Ratio 25 (6-26); Blood Urea Nitrogen 22 mg/dL (8-23); Calcium 9.3 mg/dL (8.6-10.3); Carbon Dioxide 22 mEq/L (23-29); Chloride 110 mEq/L (98-107); Glucose 234 mg/dL (70-105); Osmolality,Calculated 297 (280-300); Potassium 4.5 mEq/L (3.5-5.1); Sodium 138 mEq/L (136-145); eGFR For African Americans > 60 (> 60); eGFR For Non-African Americans > 60 (> 60)
[2018-01-30] MEDS ORDERED: Insulin LISPRO 300 UNITS/3 ML VIAL SQ SCH ×3 (07:30→21:00)
--- NOTE | 2018-01-30 08:20 | Pulmonology Progress Note ---
<Tor Roe - Last Filed: 01/30/18 08:17> Date of Encounter: 01/30/18 Time of Encounter: 08:17 Assessment and Plan (1) Anaphylaxis Current Visit: Yes Status: Acute Systems based plan: - Patient seen and examined. - Labs, radiology, chart personally reviewed. SEAM CLOSER: Alert, oriented 3, somewhat anxious, but does appear to be baseline Pulmonary: Acceptable oxygenation and ventilation, trace wheezing, we will restart home meds Cardiovascular: Vitals stable GI: Nutrition per dietary and GI prophylaxis per routine Heme: DVT prophylaxis per routine ID: Monitor Renal: Trend Endorcine: Monitor blood glucose Lines: all lines checked and no evidence of infections Skin: skin care to prevent pressure ulcers per nursing routine care Overall prognosis is good and can be transferred to floor today and discharged tonight or in the AM 1. Resolved, will txf to floor today 2. Patient will need 24 hours of steroids/benadryl then taper steroids 3. Refill on epi-pen upon discharge 4. restarting home meds now that she can take PO Qualifiers: Encounter type: initial encounter Qualified Code(s): T78.2XXA - Anaphylactic shock, unspecified, initial encounter (2) Diverticulitis Current Visit: No Status: Acute 1. Continue home antibiotics, abdominal exam is benign (3) Diabetes Current Visit: No Status: Acute 1. We will monitor, continue home meds Qualifiers: Diabetes mellitus type: type 2 Diabetes mellitus longterm insulin use: without longterm use Diabetes mellitus complication status: without complication Qualified Code(s): E11.9 - Type 2 diabetes mellitus without complications (4) Hypertension Current Visit: No Status: Acute 1. Monitor, continue home meds Qualifiers: Hypertension type: essential hypertension Qualified Code(s): I10 - Essential (primary) hypertension Subjective Principal diagnosis: Anaphylaxis Interval history: Patient doing much better, swelling is mostly gone, denies any chest pain or shortness of breath, but does state she still has some tightness in her neck and throat. Objective PUL Vital signs: Last Vital Signs Temp 98.3 F 01/30/18 07:35 Pulse 52 01/30/18 07:11 Resp 14 01/30/18 07:00 BP 120/74 01/30/18 07:00 Pulse Ox 98 01/30/18 07:00 General appearance: no acute distress Eyes: nonicteric ENT: oropharynx moist Neck: supple, other (b/l muscular tenderness) Effort: normal Auscultation: bilateral: clear, wheezes (trace) Cardiovascular: regular rate and rhythm Gastrointestinal: normoactive bowel sounds, non-distended Integumentary: normal Extremities: no cyanosis, no edema, no clubbing Musculoskeletal: no deformities, ROM normal normal mental status, non-focal exam mood appropriate, affect normal Results - Laboratory Findings CBC and BMP: 01/30/18 06:10 01/30/18 06:10 Abnormal lab findings: Abnormal lab results WBC 11.7 K/mcL (4.3-11.1) H 01/30/18 06:10 MPV 12.9 fL (9.4-12.4) H 01/30/18 06:10 Neutrophils # 10.4 K/mcL (1.6-8.9) H 01/30/18 06:10 Chloride 110 mEq/L (98-107) H 01/30/18 06:10 Carbon Dioxide 22 mEq/L (23-29) L 01/30/18 06:10 Glucose 234 mg/dL (70-105) H 01/30/18 06:10 POC Glucose 204 mg/dL (70-99) H 01/29/18 20:10 - Clinical Findings Intake & Output: Intake & Output 01/29/18 01/30/18 01/30/18 23:59 07:59 15:59 Intake Total 300 / 800 Output Total 200 / 700 225 / 225 Balance 100 / 100 -225 / -225 Weight 98.9 kg Consult Discharge Plan - Plan Referrals: Timmy Villarreal MD [Primary Care Provider] - <Sriram Montiel - Last Filed: 01/30/18 22:04> Date of Encounter: 01/30/18 Objective PUL Vital signs: Last Vital Signs Temp 98.4 F 01/30/18 18:40 Pulse 57 01/30/18 18:40 Resp 15 01/30/18 19:51 BP 111/72 01/30/18 18:40 Pulse Ox 98 01/30/18 19:51 Results - Laboratory Findings CBC and BMP: 01/30/18 06:10 01/30/18 06:10 Abnormal lab findings: Abnormal lab results WBC 11.7 K/mcL (4.3-11.1) H 01/30/18 06:10 MPV 12.9 fL (9.4-12.4) H 01/30/18 06:10 Neutrophils # 10.4 K/mcL (1.6-8.9) H 01/30/18 06:10 Chloride 110 mEq/L (98-107) H 01/30/18 06:10 Carbon Dioxide 22 mEq/L (23-29) L 01/30/18 06:10 Glucose 234 mg/dL (70-105) H 01/30/18 06:10 POC Glucose 234 mg/dL (70-99) H 01/30/18 20:10 - Clinical Findings Intake & Output: Intake & Output 01/30/18 01/30/18 01/30/18 07:59 15:59 23:59 Intake Total 0 / 0 480 / 480 Output Total 225 / 225 250 / 250 0 / 0 Balance -225 / -225 -250 / -250 480 / 480 Weight 98.9 kg - Attending Attestation - Attending Attestation I saw and evaluated this patient and my medical decision-making was reviewed with the Resident Physician. I agree with the documented findings, disposition and treatment plan as described except to the extent set forth below. We independently had [id number] contact with the patient Patient seen and examined at bedside Labs, radiology, chart personally reviewed. Management was reviewed during multidisciplinary critical care rounds. SEAM CLOSER: Patient is conscious oriented able to talk clearly in full sentences. Pulm: Patient has acceptable oxygenation and ventilation.To wean down FIO2 as tolerated . Patient has tongue swelling after Bee sting initially she had trouble swallowing after 2 epipen device , had steroids in the ED she responded well to steroids , will continue Steroids , Anti -histaminic and H2 soto 01/30 Patient is off oxygen will change to PO prednisone Cards: Patient is hemodynamically stable FEN-GI: Advance as diet as tolerated Renal: Labs reviewed ID: No active issues Heme/Onc: Patient had anaphylaxis , patient is on thromboprophylaxis Endo: Glucose Monitored Integ/MSK: Skin Care per routine ICU Nursing Protocol to prevent ulcers. Lines: All lines examined without evidence of infection : Dispo: Will transfer to the floor for further monitoring CODE:Full Code
[2018-01-30] MEDS ORDERED: *HR* Heparin 5,000 UNIT/ML VIAL SQ SCH (08:30)
[2018-01-30] MEDS ORDERED: Ketorolac 15 MG/ML VIAL IVP ONE (08:52)
[2018-01-30] MEDS ORDERED: Orphenadrine 60 MG/2 ML VIAL IVP ONE (08:54)
[2018-01-30] MEDS: Metoprolol XL (24 HR) Succ 50 MG TAB.ER.24H PO SCH ×2 (09:19→09:24)
[2018-01-30] MEDS: methylPREDNISolone 125 MG/2 ML VIAL IVP SCH (09:19)
[2018-01-30] MEDS ORDERED: *HR* Dextrose 50 % in Water (Syg) 50 ML SYRINGE IVP PRN (09:57)
[2018-01-30] MEDS ORDERED: Naloxone 0.4 MG/ML INJ IVP PRN (09:57)
[2018-01-30] MEDS ORDERED: Dextrose Gel 15 GM/37.5 ML TUBE PO PRN ×2 (09:57)
[2018-01-30] MEDS ORDERED: Furosemide 20 MG TABLET PO SCH (09:57)
[2018-01-30] MEDS ORDERED: D5% in Water 1,000 ML IVC PRN (09:57)
[2018-01-30] MEDS ORDERED: *HR* LORazepam 0.5 MG TABLET PO PRN (09:57)
[2018-01-30] MEDS: *HR* Metformin 500 MG TABLET PO SCH ×2 (11:05→17:33)
--- NOTE | 2018-01-30 12:20 | Electrocardiograph Report ---
[place] [id number] Test Date: 2018-01-29 Pat Name: Dixie Polanco Department: 103 Room: 3A44 Gender: F Pearl Glue Drier: JOSE : 1955 Requested By: Glenis Cunningham Order Number: [id number] Reading MD: Pro Cerrato Measurements Intervals [place] Rate: 91 P: 16 CO: 147 QRS: 63 QRSD: 84 T: 11 QT: 366 QTc: 415 Interpretive Statements SINUS RHYTHM Electronically Signed On 01-30-2018 12:18:42 EDT by Pro Cerrato
[2018-01-30] MEDS ORDERED: methylPREDNISolone 125 MG/2 ML VIAL IVP SCH (17:15)
[2018-01-30] MEDS: *HR* Heparin 5,000 UNIT/ML VIAL SQ SCH (17:33)
[2018-01-30] MEDS: Famotidine 20 MG/2 ML VIAL IVP SCH (17:33)
[2018-01-30] MEDS: Beclomethasone 40mcg MDI IH SCH (19:51)
[2018-01-31] MEDS: *HR* Heparin 5,000 UNIT/ML VIAL SQ SCH (05:24)
[2018-01-31] MEDS: Famotidine 20 MG/2 ML VIAL IVP SCH (05:24)
[2018-01-31] MEDS: *HR* Metformin 500 MG TABLET PO SCH (08:18)
[2018-01-31] MEDS ORDERED: *HR* Dextrose 50 % in Water (Syg) 50 ML SYRINGE IVP PRN (08:19)
[2018-01-31] MEDS ORDERED: D5% in Water 1,000 ML IVC PRN (08:19)
[2018-01-31] MEDS ORDERED: Dextrose Gel 15 GM/37.5 ML TUBE PO PRN ×2 (08:19)
[2018-01-31] MEDS: Insulin LISPRO 300 UNITS/3 ML VIAL SQ SCH ×2 (08:42→13:22)
[2018-01-31] MEDS ORDERED: Metoprolol XL (24 HR) Succ 50 MG TAB.ER.24H PO SCH (09:00)
[2018-01-31] MEDS ORDERED: predniSONE 20 MG TABLET PO SCH (09:00)
[2018-01-31] MEDS: Beclomethasone 40mcg MDI IH SCH (10:05)
[2018-01-31 10:22] VITALS: BP 109/73
[2018-01-31] MEDS ORDERED: Naloxone 0.4 MG/ML INJ IVP PRN (11:00)
--- NOTE | 2018-01-31 12:15 | Discharge Summary ---
- NOTES TO OUTPATIENT PROVIDER Notes to Outpatient Provider: Anaphylaxis to bee sting, now on oral steroids Date of Encounter: 01/31/18 Time of Encounter: 12:13 - Discharge Diagnosis (1) Anaphylaxis Priority: Primary Status: Acute Qualifiers: Encounter type: initial encounter Qualified Code(s): T78.2XXA - Anaphylactic shock, unspecified, initial encounter (2) Acute diverticulitis Priority: Primary Status: Resolved (3) CAD (coronary artery disease) Priority: Secondary Status: Chronic Qualifiers: Coronary Disease-Associated Artery/Lesion type: [place] artery [place] vs. transplanted heart: [place] heart Associated angina: without angina Qualified Code(s): I25.10 - Atherosclerotic heart disease of [place] coronary artery without angina pectoris (4) Diabetes Priority: Secondary Status: Chronic Qualifiers: Diabetes mellitus type: type 2 Diabetes mellitus senior living insulin use: without senior living use Diabetes mellitus complication status: without complication Qualified Code(s): E11.9 - Type 2 diabetes mellitus without complications (5) Hypertension Priority: Secondary Status: Chronic Qualifiers: Hypertension type: essential hypertension Qualified Code(s): I10 - Essential (primary) hypertension Hospital course: Ms. Polanco is a 62 year old female with the above medical problems, who was admitted following an anaphylactic reaction due to a bee sting. She apparently had significant lip and facial swelling along with difficulty swallowing and shortness of breath at admission. She received epinephrine, IV Benadryl, IV steroids and IV Pepcid and was admitted to ICU for close monitoring. She did not require intubation. Her clinical condition significantly improved and she is being transitioned to oral steroids and Benadryl today. She is medically stable for discharge home with outpatient follow-up. Discharge discussed with: patient - Time Spent with Patient Total time spent providing and/or coordinating discharge services: Greater than 30 minutes (45 min) - Discharge Medications Prescriptions: DiphenhydraMINE [Benadryl] 25 mg PO Q8HR PRN #1 mls PRN Reason: Allergic Symptoms EPINEPHrine [Epipen] 0.3 mg IJ DAILY PRN #5 auto.injct PRN Reason: Anaphylaxis predniSONE [PredniSONE] 40 mg PO DAILY #6 tablet Home Medications: Clopidogrel [Plavix] 75 mg PO DAILY 11/04/15 [History] Metformin HCl [Glucophage] 1,000 mg PO BID 11/04/15 [History] Allopurinol [Zyloprim 100 MG] 100 mg PO DAILY 07/23/17 [History] LORazepam [Ativan] 0.5 mg PO DAILY PRN 07/23/17 [History] Meclizine HCl [Verticalm] 25 mg PO DAILY PRN 07/23/17 [History] Albuterol Sulfate [Ventolin Hfa] 18 gm IH Q4H PRN 12/31/17 [History] Fluticasone Propionate Nasal [Flonase] 25 gm IN DAILY 12/31/17 [History] Furosemide [Lasix] 20 mg PO Q48H 12/31/17 [History] Rosuvastatin Calcium 5 mg PO Q48H 01/01/18 [History] Metoprolol Succinate [Toprol Xl] 100 mg PO DAILY 01/02/18 [History] Beclomethasone Diprop 40mcg [QVAR 40 mcg] 1 puff IH BID 01/30/18 [History] DiphenhydraMINE [Benadryl] 25 mg PO Q8HR PRN #1 mls 01/31/18 [Rx] EPINEPHrine [Epipen] 0.3 mg IJ DAILY PRN #5 auto.injct 01/31/18 [Rx] predniSONE [PredniSONE] 40 mg PO DAILY #6 tablet 01/31/18 [Rx] Allergies/Adverse Reactions: 3 Allergy/AdvReac Type Severity Reaction Status Date / Time aspirin Allergy Hives Verified 01/29/18 17:11 ciprofloxacin Allergy Rash Verified 01/29/18 17:11 iodine Allergy Hives Verified 01/29/18 17:11 Oxycodone AdvReac Headache Verified 01/29/18 17:11 Qeqrsbq-Zxo-Ilv Reductase AdvReac Muscle Pain Verified 01/29/18 17:11 Inhibitor [Statins] Date of admission: 01/29/18 23:16 Primary care physician: Timmy Villarreal MD Discharging clinician: Dahlia Mccollum Anticipated date of discharge: 01/31/18 - Constitutional Vitals: Temp Pulse Resp BP Pulse Ox 97.6 F 59 16 109/73 96 01/31/18 10:19 01/31/18 10:19 01/31/18 10:19 01/31/18 10:19 01/31/18 10:19 General appearance: Present: A&O X 3, answers questions appropriately - Cardiovascular Cardiovascular exam: Present: RRR, +S1, +S2. Absent: diastolic murmur, gallop, rubs, systolic murmur - Patient Status Disposition: Home, Self-Care Condition: Good Functional capacity at discharge: independent ambulation Overall status at discharge: patient is back to baseline - Discharge Instructions Instructions: Anaphylaxis (DC) Follow Up With: Guilherme Russell [Partnered Physician] - 02/05/18 10:00 am Additional Instructions: F/up with PCP in 1-2 weeks - Diet and Activity Activity: resume usual activities as tolerated Diet: diabetic diet, low fat, low cholesterol, low salt diet
[2018-01-31] MEDS ORDERED: Insulin LISPRO 300 UNITS/3 ML VIAL SQ SCH (21:00)
== END 2018-01-31 13:30 | disposition home or self-care (01) ==
LOC: EMEROO 13:52 → ICNU 13:52 → SUATTDRO 23:16 → 3ANU 01-30 11:53
PROVIDERS: ADMIT Internal Medicine; ATTEND Internal Medicine

== ENCOUNTER 2021-03-15 04:21 | Inpatient (IN) ==
[2021-03-15] MEDS ORDERED: Isovue-370 500 ML BOTTLE IVP ONE ×2 (04:32→04:43)
[2021-03-15] MEDS ORDERED: Nitroglycerin 0.4 MG TAB.SUBL SL ONE (04:37)
[2021-03-15] MEDS ORDERED: methylPREDNISolone 125 MG/2 ML VIAL IVP ONE (04:43)
[2021-03-15] MEDS ORDERED: Famotidine 20 MG/2 ML VIAL IVP ONE (04:43)
[2021-03-15] MEDS: Nitroglycerin 0.4 MG TAB.SUBL SL SCH ×2 (04:43→07:37)
[2021-03-15 05:20] LABS: Basophils # 0.1 K/mcL (0.0-0.2); Basophils % 0.3 %; Eosinophils # 0.2 K/mcL (0.0-0.6); Eosinophils % 1.5 %; Hematocrit 42.2 % (35.3-44.9); Hemoglobin 14.2 g/dL (11.5-15.4); Immature Granulocytes % 0.4 % (0-4); Lymphocytes # 1.8 K/mcL (0.6-4.6); Lymphocytes % 12.1 %; Mean Corpuscular HGB Conc 33.6 g/dL (31.6-35.5); Mean Corpuscular Hemoglobin 31.1 pg (28.0-33.3); Mean Corpuscular Volume 92.3 fL (83.0-100.0); Mean Platelet Volume 12.3 fL (9.4-12.4); Monocytes # 1.1 K/mcL (0.0-1.3); Monocytes % 7.9 %; Neutrophils # 11.3 K/mcL (1.6-8.9); Platelet Count 209 K/mcL (140-400); Red Blood Count 4.57 M/mcL (3.82-4.97); Red Cell Distribution Width 14.1 % (11.5-14.5); Segmented Neutrophils % 77.8 %; White Blood Count 14.5 K/mcL (4.3-11.1)
[2021-03-15 05:37] LABS: BUN/Creatinine Ratio 21 (6-26); Blood Urea Nitrogen 20 mg/dL (8-23); Calcium 9.3 mg/dL (8.6-10.3); Carbon Dioxide 27 mEq/L (23-29); Chloride 104 mEq/L (98-107); Glucose 126 mg/dL (70-105); Osmolality,Calculated 294 (280-300); Potassium 3.7 mEq/L (3.5-5.1); Sodium 140 mEq/L (136-145); Troponin I < 0.03 ng/mL (< 0.04); eGFR For African Americans > 60 (> 60); eGFR For Non-African Americans 58 (> 60)
[2021-03-15 07:05] LABS: Adenovirus Not Detected (Not Detect); Bordetella Pertussis Not Detected (Not Detect); Chlamydophila pneumoniae Not Detected (Not Detect); Coronavirus 229E Not Detected (Not Detect); Coronavirus HKU1 Not Detected (Not Detect); Coronavirus NL63 Not Detected (Not Detect); Coronavirus OC43 Not Detected (Not Detect); Human Metapneumovirus Not Detected (Not Detect); Human Rhinovirus/Enterovirus Not Detected (Not Detect); Influenza A Subtype 2009 H1 Not Detected (Not Detect); Influenza B Not Detected (Not Detect); Mycoplasma pneumoniae Not Detected (Not Detect); Parainfluenza Virus 1 Not Detected (Not Detect); Parainfluenza Virus 2 Not Detected (Not Detect); Parainfluenza Virus 3 Not Detected (Not Detect); Parainfluenza Virus 4 Not Detected (Not Detect); Respiratory Syncytial Virus Not Detected (Not Detect); SARS-CoV-2 Not Detected (Not Detect)
[2021-03-15] MEDS ORDERED: Ondansetron 4 MG/2 ML VIAL IVP PRN (08:06)
[2021-03-15] MEDS ORDERED: Acetaminophen 325 MG TABLET PO PRN (08:06)
[2021-03-15] MEDS ORDERED: D5% in Water 1,000 ML IVC PRN (08:06)
[2021-03-15] MEDS ORDERED: Naloxone 0.4 MG/ML INJ IVP PRN (08:06)
[2021-03-15] MEDS ORDERED: *HR* Dextrose 50 % in Water (Vial) 50 ML VIAL IVP PRN (08:06)
[2021-03-15] MEDS ORDERED: Dextrose Gel 15 GM/37.5 ML TUBE PO PRN ×2 (08:06)
[2021-03-15 09:52] LABS: Cholesterol 200 mg/dL (< 200); HDL Cholesterol 50 mg/dL (40-59); LDL Cholesterol,Calculated 131 mg/dL (< 100); Triglycerides 93 mg/dL (< 150); Troponin I < 0.03 ng/mL (< 0.04)
[2021-03-15 11:15] LABS: Estimated Average Glucose 146 mg/dl; Hemoglobin A1C 6.7 %
[2021-03-15] MEDS: Insulin LISPRO 300 UNITS/3 ML VIAL SUBQ SCH ×2 (12:01→17:53)
[2021-03-15] MEDS ORDERED: Regadenoson 0.4 MG/5 ML SYRINGE IVP ONE (12:11)
[2021-03-16] MEDS: Insulin LISPRO 300 UNITS/3 ML VIAL SUBQ SCH ×5 (04:40→23:34)
[2021-03-16] MEDS ORDERED: *HR* Enoxaparin 40 MG/0.4 ML SYRINGE SQ SCH (06:00)
[2021-03-16] MEDS ORDERED: Perflutren Lipid Microsphere 1.3 ML in 0.9 % Sodium Chloride 8.7 ML IVP PRN ×2 (09:49→19:24)
[2021-03-16 10:03] LABS: Basophils % 0.1 %; Eosinophils % 0.2 %; Hematocrit 41.2 % (35.3-44.9); Immature Granulocytes % 0.4 % (0-4); Lymphocytes # 2.1 K/mcL (0.6-4.6); Lymphocytes % 18.4 %; Mean Corpuscular Hemoglobin 31.6 pg (28.0-33.3); Mean Platelet Volume 12.4 fL (9.4-12.4); Monocytes # 0.9 K/mcL (0.0-1.3); Monocytes % 8.1 %; Neutrophils # 8.4 K/mcL (1.6-8.9); Platelet Count 202 K/mcL (140-400); Red Blood Count 4.43 M/mcL (3.82-4.97); Red Cell Distribution Width 13.9 % (11.5-14.5); Segmented Neutrophils % 72.8 %; White Blood Count 11.5 K/mcL (4.3-11.1)
[2021-03-16 10:23] LABS: BUN/Creatinine Ratio 29 (6-26); Blood Urea Nitrogen 24 mg/dL (8-23); Calcium 9.3 mg/dL (8.6-10.3); Carbon Dioxide 29 mEq/L (23-29); Chloride 104 mEq/L (98-107); Glucose 113 mg/dL (70-105); Magnesium 1.9 mg/dL (1.6-2.6); Osmolality,Calculated 293 (280-300); Phosphorous 2.8 mg/dL (2.7-4.5); Potassium 3.6 mEq/L (3.5-5.1); Sodium 139 mEq/L (136-145); eGFR For African Americans > 60 (> 60); eGFR For Non-African Americans > 60 (> 60)
[2021-03-16] MEDS ORDERED: EPINEPHrine 1 MG/ML VIAL IV PRN (11:04)
[2021-03-16] MEDS ORDERED: Loratadine 10 MG TABLET PO ONE (11:15)
[2021-03-16] MEDS ORDERED: Famotidine 20 MG/2 ML VIAL IVP PRN (11:15)
[2021-03-16] MEDS ORDERED: Aspirin desensitization 1 mg/ml PO ONE ×3 (11:15)
[2021-03-16] MEDS ORDERED: EPINEPHrine 1 MG/ML VIAL IM PRN (11:15)
[2021-03-16] MEDS ORDERED: methylPREDNISolone 125 MG/2 ML VIAL IVP PRN (11:15)
[2021-03-16] MEDS ORDERED: Aspirin desensitization 4 mg/ml PO ONE ×4 (11:15)
[2021-03-16] MEDS ORDERED: Aspirin 81 MG TAB.CHEW PO ONE (11:15)
[2021-03-16] MEDS ORDERED: *HR* Dextrose 50 % in Water (Vial) 50 ML VIAL IVP PRN (19:24)
[2021-03-16] MEDS ORDERED: Naloxone 0.4 MG/ML INJ IVP PRN (19:24)
[2021-03-16] MEDS ORDERED: D5% in Water 1,000 ML IVC PRN (19:24)
[2021-03-16] MEDS ORDERED: Acetaminophen 325 MG TABLET PO PRN (19:24)
[2021-03-16] MEDS ORDERED: Dextrose Gel 15 GM/37.5 ML TUBE PO PRN ×2 (19:24)
[2021-03-16] MEDS ORDERED: Ondansetron 4 MG/2 ML VIAL IVP PRN (19:24)
[2021-03-17] MEDS: Insulin LISPRO 300 UNITS/3 ML VIAL SUBQ SCH ×2 (05:13→12:06)
[2021-03-17] MEDS ORDERED: *HR* Enoxaparin 40 MG/0.4 ML SYRINGE SQ SCH (06:00)
[2021-03-17] MEDS ORDERED: Aspirin 81 MG TAB.CHEW PO SCH ×2 (09:00)
[2021-03-17] MEDS ORDERED: Ezetimibe [Zetia] 10 MG Tablet PO SCH (09:00)
[2021-03-17] MEDS ORDERED: Metoprolol XL (24 HR) Succ 50 MG TAB.ER.24H PO SCH ×2 (09:00)
[2021-03-17 09:27] LABS: BUN/Creatinine Ratio 32 (6-26); Blood Urea Nitrogen 27 mg/dL (8-23); Calcium 8.9 mg/dL (8.6-10.3); Carbon Dioxide 28 mEq/L (23-29); Chloride 106 mEq/L (98-107); Glucose 93 mg/dL (70-105); Osmolality,Calculated 297 (280-300); Potassium 4.1 mEq/L (3.5-5.1); Sodium 141 mEq/L (136-145); eGFR For African Americans > 60 (> 60); eGFR For Non-African Americans > 60 (> 60)
[2021-03-17] MEDS ORDERED: 0.9 % Sodium Chloride 2,000 ML ONE (10:32)
[2021-03-17] MEDS ORDERED: Heparin 1,000 UNITS/500 mL 500 ML ONE (10:32)
[2021-03-17] MEDS ORDERED: *HR* Heparin 10,000 UNIT/10 ML VIAL ONE (10:32)
[2021-03-17] MEDS ORDERED: Nitroglycerin 1,000 MCG/5 ML VIAL IV ONE (10:32)
[2021-03-17] MEDS ORDERED: ISOVUE-370 200 ML INFUS..BTL ONE (10:32)
[2021-03-17] MEDS ORDERED: *HR* Midazolam HCl 2 MG/2 ML VIAL ONE (10:38)
[2021-03-17] MEDS ORDERED: *HR* FentaNYL (PF) 100 MCG/2 ML VIAL ONE (10:38)
[2021-03-17] MEDS ORDERED: methylPREDNISolone 125 MG/2 ML VIAL ONE (10:42)
[2021-03-17] MEDS ORDERED: Isosorbide MONOnitrate (24 HR) 30 MG TAB.ER.24H PO SCH (12:45)
[2021-03-17 15:30] VITALS: BP 109/71; PULSE 67; TEMP 97.6; O2SAT 96
== END 2021-03-17 15:40 | disposition home or self-care (01) | DRG 287 ==
LOC: 3BNU 04:21 → EMEROOARM 04:21 → 3BNU 08:17 → ICNU 03-16 11:53 → SUATTDRO 03-16 12:19 → 3BNU 03-16 16:22
PROVIDERS: ADMIT Internal Medicine; ATTEND Internal Medicine

== ENCOUNTER 2021-03-20 17:27 | Observation (INO) ==
[2021-03-20] MEDS ORDERED: Ondansetron ODT 4 MG TAB.RAPDIS SL ONE (20:33)
[2021-03-20] MEDS ORDERED: Ondansetron 4 MG/2 ML VIAL IVP ONE (20:50)
[2021-03-20] MEDS ORDERED: *HR* FentaNYL (PF) 100 MCG/2 ML VIAL IVP ONE (20:50)
[2021-03-20 21:25] LABS: Basophils % 0.2 %; Eosinophils # 0.3 K/mcL (0.0-0.6); Eosinophils % 2.8 %; Hematocrit 39.1 % (35.3-44.9); Hemoglobin 13.1 g/dL (11.5-15.4); Immature Granulocytes % 0.2 % (0-4); Lymphocytes # 2.7 K/mcL (0.6-4.6); Lymphocytes % 29.7 %; Mean Corpuscular HGB Conc 33.5 g/dL (31.6-35.5); Mean Corpuscular Hemoglobin 31.3 pg (28.0-33.3); Mean Corpuscular Volume 93.3 fL (83.0-100.0); Mean Platelet Volume 12.1 fL (9.4-12.4); Monocytes # 0.6 K/mcL (0.0-1.3); Monocytes % 6.9 %; Neutrophils # 5.5 K/mcL (1.6-8.9); Platelet Count 201 K/mcL (140-400); Red Blood Count 4.19 M/mcL (3.82-4.97); Red Cell Distribution Width 13.8 % (11.5-14.5); Segmented Neutrophils % 60.2 %; White Blood Count 9.1 K/mcL (4.3-11.1)
[2021-03-20 21:43] LABS: Alanine Aminotransferase 12 Units/L (7-52); Albumin 3.8 g/dL (3.5-5.7); Albumin/Globulin Ratio 1.5 (1.1-2.2); Alkaline Phosphatase 64 Units/L (34-104); Aspartate Amino Transferase 12 Units/L (13-39); BUN/Creatinine Ratio 24 (6-26); Bilirubin,Total 0.6 mg/dL (0.3-1.0); Blood Urea Nitrogen 20 mg/dL (8-23); Calcium 9.1 mg/dL (8.6-10.3); Carbon Dioxide 26 mEq/L (23-29); Chloride 106 mEq/L (98-107); Globulin 2.6 g/dL (2.4-3.5); Glucose 104 mg/dL (70-105); Osmolality,Calculated 291 (280-300); Potassium 4.2 mEq/L (3.5-5.1); Sodium 139 mEq/L (136-145); Total Protein 6.4 g/dL (6.4-8.9); eGFR For African Americans > 60 (> 60); eGFR For Non-African Americans > 60 (> 60)
[2021-03-20 21:50] LABS: Troponin I < 0.03 ng/mL (< 0.04)
[2021-03-20] MEDS ORDERED: Isovue-370 500 ML BOTTLE IVP ONE ×2 (23:46)
[2021-03-20] MEDS ORDERED: Morphine Sulfate 2 MG/ML SYRINGE IVP ONE (23:47)
[2021-03-21] MEDS ORDERED: methylPREDNISolone 125 MG/2 ML VIAL IVP ONE (00:04)
[2021-03-21] MEDS ORDERED: Naloxone 0.4 MG/ML INJ IVP PRN (05:21)
[2021-03-21] MEDS ORDERED: Orphenadrine 60 MG/2 ML VIAL IVP ONE (05:57)
[2021-03-21] MEDS ORDERED: Dextrose Gel 15 GM/37.5 ML TUBE PO PRN ×2 (06:17)
[2021-03-21] MEDS ORDERED: *HR* Dextrose 50 % in Water (Vial) 50 ML VIAL IVP PRN (06:17)
[2021-03-21] MEDS ORDERED: D5% in Water 1,000 ML IVC PRN (06:17)
[2021-03-21 06:48] VITALS: O2SAT 94
[2021-03-21] MEDS: Insulin LISPRO 300 UNITS/3 ML VIAL SUBQ SCH ×2 (08:50→12:17)
[2021-03-21] MEDS ORDERED: Ketorolac 30 MG/ML VIAL IVP ONE (09:54)
[2021-03-21 11:40] VITALS: BP 131/76; PULSE 67; TEMP 98.5
== END 2021-03-21 16:05 | disposition home or self-care (01) ==
LOC: CDU 17:27 → EMEROOARM 17:27 → SUATTDRO 03-21 04:40 → CDU 03-21 06:42
PROVIDERS: ADMIT Student in an Organized Health Care Education/Training Program; ATTEND Internal Medicine